=== PATIENT | female | born 1990 | race Caucasian/White ===

== ENCOUNTER → 2016-10-01 | Outpatient (CLI) | payer OTHER ==
[~2016-10-01] MED LIST: NEURONTIN 300300 MG PO; PERCOCET 7.5-31 EACH PO
== END ==
LOC: KOH-I 14:17
DX: M84.374A Stress fracture, right foot, initial encounter for fracture (principal); S82.301K Unspecified fracture of lower end of right tibia, subsequent encounter for closed fracture with nonunion; Z88.0 Allergy status to penicillin; Z88.6 Allergy status to analgesic agent; Z88.1 Allergy status to other antibiotic agents; Z88.5 Allergy status to narcotic agent
CPT/HCPCS: 73700

== ENCOUNTER 2020-10-07 10:19 | Emergency (ER) | payer OTHER ==
[~2020-10-07] VITALS: Ht 157.5 cm; Wt 61.2 kg
[~2020-10-07 10:19] MED LIST changes: +IBU800 MG PO; +MACROBID 100 M100 MG PO; -NEURONTIN 300300 MG PO; +PHENERGAN 25 MG25 M1 PO; +SULFAMETHOXAZO1 EACH PO
[2020-10-07 10:34] LABS: HEMOGLOBIN 15.1 gm/dl (12.3-15.3); RED BLOOD COUNT 4.8 M/UL (4.00-5.10); WHITE BLOOD COUNT 8.2 K/UL (4.5-11.0)
[2020-10-07 11:05] LABS: BUN/CREATININE RATIO 14 (0-10)
[2020-10-07] MEDS ORDERED: DIVALPROEX SOD250 M1 PO (13:53)
[2020-10-07] MEDS ORDERED: QUETIAPINE FUM100 MG PO (14:01)
[2020-10-07] MEDS ORDERED: ROBITUSSIN DM UD5 ML PO (14:06)
[2020-10-07] MEDS ORDERED: NEURONTIN400 MG PO (14:25)
[2020-10-07] MEDS ORDERED: CLARITIN10 MG PO (15:13)
[2020-10-07] MEDS ORDERED: VENTOLIN HFA 66.7 GM INH (15:14)
[2020-10-07] MEDS ORDERED: NICOTINE PATCH1 EAC2 TD (15:16)
[2020-10-07] MEDS ORDERED: PEG3350510 GM PO (15:17)
== END 2020-10-07 16:00 | disposition left against medical advice (07) ==
LOC: ER1 10:19 → CDU 11:56 → ER1 11:56 → CDU 16:00
PROVIDERS: Emergency Medicine
DX: T40.2X1A Poisoning by other opioids, accidental (unintentional), initial encounter (principal); T42.6X1A Poisoning by other antiepileptic and sedative-hypnotic drugs, accidental (unintentional), initial encounter; T39.311A Poisoning by propionic acid derivatives, accidental (unintentional), initial encounter; T45.2X1A Poisoning by vitamins, accidental (unintentional), initial encounter; J44.9 Chronic obstructive pulmonary disease, unspecified; Z20.822 Contact with and (suspected) exposure to COVID-19; E87.6 Hypokalemia; Z88.0 Allergy status to penicillin; Z88.8 Allergy status to other drugs, medicaments and biological substances; Z90.89 Acquired absence of other organs
CPT/HCPCS: 80053; 80307; 81001; 82550; 82553; 83874; 84484; 84703; 85025; 93005; 96365; 96366; 99284; G0378; J3480; U0002

== ENCOUNTER 2020-12-09 01:40 | Emergency (ER) | payer OTHER ==
[~2020-12-09 01:40] MED LIST changes: +CLARITIN10 MG PO; +DIVALPROEX SOD250 M1 PO; +NEURONTIN400 MG PO; +NICOTINE PATCH1 EAC2 TD; +PEG3350510 GM PO; +QUETIAPINE FUM100 MG PO; +ROBITUSSIN DM UD5 ML PO; +VENTOLIN HFA 66.7 GM INH
[2020-12-09 03:18] LABS: HEMOGLOBIN 14.2 gm/dl (12.3-15.3); RED BLOOD COUNT 4.52 M/UL (4.00-5.10); WHITE BLOOD COUNT 9.5 K/UL (4.5-11.0)
[2020-12-09 03:50] LABS: BUN/CREATININE RATIO 18 (0-10)
== END 2020-12-09 06:31 | disposition home or self-care (01) ==
LOC: ER1 01:40
PROVIDERS: Student in an Organized Health Care Education/Training Program
DX: E86.0 Dehydration (principal); F15.10 Other stimulant abuse, uncomplicated; F17.210 Nicotine dependence, cigarettes, uncomplicated; Z79.899 Other long term (current) drug therapy; Z88.0 Allergy status to penicillin; Z88.6 Allergy status to analgesic agent
CPT/HCPCS: 80053; 80307; 81001; 82550; 82553; 83605; 83735; 83874; 84100; 84484; 84702; 85025; 93005; 99284; G0480; J7120

== ENCOUNTER 2022-02-16 08:41 | Emergency (ER) | payer OTHER | END 2022-02-16 12:16 | disposition home or self-care (01) | LOC: ER1 08:41 | DX: R05.9 Cough, unspecified (principal); R51.9 Headache, unspecified; Z20.822 Contact with and (suspected) exposure to COVID-19; G40.909 Epilepsy, unspecified, not intractable, without status epilepticus; I10 Essential (primary) hypertension; J45.909 Unspecified asthma, uncomplicated; G62.9 Polyneuropathy, unspecified; F17.200 Nicotine dependence, unspecified, uncomplicated; Z87.442 Personal history of urinary calculi; Z88.0 Allergy status to penicillin | CPT/HCPCS: 99284; U0002 ==